=== PATIENT | male | born 1940 | race Caucasian/White ===

== ENCOUNTER 2016-11-16 14:10 | Observation (INO) | payer MEDICARE, OTHER ==
[~2016-11-16] VITALS: Ht 160 cm; Wt 75.0 kg
[~2016-11-16 14:10] MED LIST: BENHCT2012 PO; CLON0.5T4 PO; DIPH25CA6 PO; FINA5TAB4 PO; LAS20 PO; LUBI24CA7 PO; MECL-77 PO; MEMA1CAP3 PO; TAMS0.4C2 PO; TRIA15CR55 TOP; WARF3TAB PO
--- NOTE | 2016-11-16 14:47 | RADRPT ---
PROCEDURE: XR Chest. CLINICAL INDICATION: Chest pain. TECHNIQUE: Anterior chest x-ray. COMPARISON: 09/26/2013 FINDINGS: The lungs are clear. No pleural effusion identified. There is no evidence of pneumothorax. The heart size is large. Median sternotomy wires are unchanged from previous exam. Atherosclerotic calcification of the aorta is again noted. The cardiomediastinal silhouette is otherwise unremarka ble. The soft tissues are normal. Osseous structures are unremarkable. IMPRESSION: 1. No acute disease is seen in the chest. 2. Cardiomegaly. 3. Atherosclerotic calcification of the aorta. RPTAT: AA .Kushal Eason MD, MD Date Time Electronically viewed and signed by .Kushal Eason MD, MD on 11/16/2016 14:47 .M/
[2016-11-16] MEDS ORDERED: ONDANSETRON 4 MG INJ IV STA (14:50)
[2016-11-16] MEDS ORDERED: LABETALOL HCL 20MG INJ IV ONE (15:00)
[2016-11-16 15:33] LABS: ADD SCAN DIFF NO
[2016-11-16 15:34] LABS: BASOPHILS % 0.1 % (0.0-2.0); EOSINOPHILS % 0.3 % (0.0-7.0); HEMATOCRIT 38.9 % (42.0-52.0); HEMOGLOBIN 13.3 g/dl (14.0-18.0); LYMPHOCYTES # 0.8 10^3/ul (0.8-2.9); LYMPHOCYTES % 10.5 % (15.0-51.0); MEAN CORPUSCULAR HEMOGLOBIN 30.4 pg (29.0-33.0); MEAN CORPUSCULAR HGB CONC 34.2 g/dl (32.0-37.0); MEAN PLATELET VOLUME 12.2 fl (7.4-10.4); MONOCYTE # 0.3 10^3/ul (0.3-0.9); MONOCYTES % 3.5 % (0.0-11.0); NEUTROPHIL # 6.2 10^3/ul (1.6-7.5); PLATELET COUNT 192 10^3/UL (140-415); RED BLOOD COUNT 4.37 10^6/ul (4.70-6.10); RED CELL DISTRIBUTION WIDTH 13.7 % (11.5-14.5); WHITE BLOOD COUNT 7.2 10^3/ul (4.8-10.8)
--- NOTE | 2016-11-16 15:52 | RADRPT ---
PROCEDURE: CT Brain without. CLINICAL INDICATION: Vertigo. TECHNIQUE: A CT of the brain was performed on multidetector high-resolution CT scanner utilizing a xial sections from the skull base through the vertex without contrast. The scan was reviewed in sof t tissue brain and high frequency resolution bone algorithm windows. Images were reviewed on a high -resolution PACS workstation. One or more the following does reduction techniques were utilized: Aut omated exposure control, adjustment of the mA/ or kV according to patient's size, or use of iterativ e reconstruction technique. The exam CTDI = 44.80 mGy and the DLP = 720.23 mGy-cm. COMPARISON: Brain CT 02/26/2016. FINDINGS: The ventricles and sulci are mildly to moderately prominent indicative of volume loss. There is no intracranial hemorrhage, mass effect or midline shift. No abnormal intra-axial or extra-axial fluid collections are seen. The horta/white matter differentiation is preserved. There are mild scattered foci of hypoattenuation in the white matter, which are nonspecific in etiol ogy but likely reflect chronic small vessel ischemic changes. There are mild intracranial vascular calcifications consistent with atherosclerosis. The visualized paranasal sinuses demonstrate mild mu cosal thickening mainly in right sphenoid sinus. The mastoid air cells are essentially clear. IMPRESSION: 1. No acute intracranial hemorrhage, transcortical infarction or mass effect. 2. Mild intracranial atherosclerosis and chronic small vessel ischemic changes. 3. Mild to moderate generalized cerebral volume loss. RPTAT: PP .Eric Goode MD, MD Date Time Electronically viewed and signed by .Eric Goode MD, MD on 11/16/2016 15:51 .N/
[2016-11-16 15:55] LABS: INR 4.3; PT RATIO 3.3
[2016-11-16 15:56] LABS: PARTIAL THROMBOPLASTIN TIME 46.4 Sec (25.0-35.0)
[2016-11-16] MEDS ORDERED: SOD CHLORIDE 0.9% 1,000 ML IV STA (15:56)
[2016-11-16] MEDS ORDERED: METOCLOPRAMIDE 10 MG INJ IV STA (15:56)
[2016-11-16 15:58] LABS: ALANINE AMINOTRANSFERASE 44 IU/L (13-69); ALBUMIN/GLOBULIN RATIO 1.78; ALKALINE PHOSPHATASE 107 IU/L (42-121); ANION GAP 21 (8-16); ASPARTATE AMINO TRANSFERASE 34 IU/L (15-46); BILIRUBIN,INDIRECT 1.1 mg/dl (0-1.1); BILIRUBIN,TOTAL 1.1 mg/dl (0.2-1.3); BLOOD UREA NITROGEN 15 mg/dl (7-20); CALCIUM 10.5 mg/dl (8.4-10.2); CARBON DIOXIDE 27 mmol/L (21-31); CHLORIDE 97 mmol/L (97-110); CREATININE 0.71 mg/dl (0.61-1.24); GLUCOSE 120 mg/dl (70-220); POTASSIUM 4.4 mmol/L (3.5-5.1); SODIUM 141 mmol/L (135-144); TOTAL PROTEIN 7.8 g/dl (6.1-8.1)
[2016-11-16 16:10] LABS: TROPONIN-I < 0.012 ng/ml (0.00-0.12)
[2016-11-16 16:31] LABS: ADD UMIC YES; UR AMORPHOUS CRYSTAL FEW /HPF (NONE SEEN); UR ASCORBIC ACID NEGATIVE (NEGATIVE); UR BILIRUBIN (Dip) NEGATIVE (NEGATIVE); UR BLOOD (Dip) NEGATIVE (NEGATIVE); UR CLARITY SLIGHTLY CLOUDY (CLEAR); UR COLOR YELLOW (YELLOW); UR GLUCOSE (Dip) NEGATIVE (NEGATIVE); UR KETONES (Dip) NEGATIVE (NEGATIVE); UR LEUKOCYTE ESTERASE (Dip) TRACE Leu/ul (NEGATIVE); UR NITRITE (Dip) NEGATIVE (NEGATIVE); UR RBC 3 /HPF (0-5); UR SPECIFIC GRAVITY (Dip) 1.014 (1.003-1.030); UR TOTAL PROTEIN (Dip) 1+ mg/dl (NEGATIVE); UR UROBILINOGEN (Dip) NEGATIVE (NEGATIVE)
--- NOTE | 2016-11-16 16:53 | ERA ---
ER Documentation Chief Complaint Date/Time DATE: 11/16/16 TIME: 16:46 Chief Complaint gen weakness with no neuro def.mild headache speech clear. HPI 76-year-old male with a history of hypertension, coronary artery disease status post CABG, and prostate problems presenting to the ER complaining of severe head spinning dizziness with nausea and generalized weakness. He feels like he is going to fall. Symptoms started at 7 AM this morning. He denies any associated chest pain, shortness of breath, vision disturbance, abdominal pain, fever, or chills. He only has a mild headache. He took his blood pressure medications today but did not take any of his other medications. He denies any focal weakness or numbness. ROS All systems reviewed and are negative except as per history of present illness. Medications Home Meds Active Scripts Meclizine Hcl* (Meclizine Hcl*) 25 Mg Tablet, 25 MG PO Q8H Y for DIZZINESS, #30 TAB Prov:MEGHAN DELEON 02/27/16 Reported Medications Diphenhydramine Hcl* (Diphenhydramine Hcl*) 25 Mg Capsule, 25 MG PO QHS Y for ITCHING, CAP 02/26/16 Triamcinolone Acetonide* (Kenalog*) 0.1%-15GM Cr, 1 APPLIC TOP BID, #1 TUB 02/26/16 Warfarin Sodium* (Coumadin*) 3 Mg Tablet, 3 MG PO DAILY, TAB 02/26/16 Lubiprostone* (Amitiza*) 24 Mcg Capsule, 24 MCG PO BID, #60 CAP 02/26/16 Clonazepam* (Clonazepam*) 0.5 Mg Tablet, 0.5 MG PO QHS, TAB 02/26/16 Memantine HCl/Donepezil HCl (Namzaric 28 mg-10 mg Capsule) 1 Each Cap.spr.24, 1 EACH PO DAILY 02/26/16 Olmesartan-Hydrochlorothiazide (Benicar HCT) 20-12.5 Mg Tablet, 1 TAB PO DAILY, #30 TAB 02/26/16 Finasteride* (Finasteride*) 5 Mg Tablet, 5 MG PO DAILY, TAB 02/26/16 Tamsulosin Hcl* (Tamsulosin Hcl*) 0.4 Mg Cap.er.24h, 0.4 MG PO BID, CAP 02/26/16 Furosemide (Lasix) 20 Mg Tab, 20 MG PO DAILY 02/21/11 Allergies Allergies: Coded Allergies: ciprofloxacin (Verified Allergy, Mild, DEVELOPED ITCHING WITH DRUG INFUSION, 02/26/16) PMhx/Soc History of Surgery: Yes (heart surgery 15 yrs ago aortic valve replacement) Anesthesia Reaction: No Hx Neurological Disorder: No Hx Respiratory Disorders: Yes (copd.pneumonia htn) Hx Cardiac Disorders: Yes ( afib ,dyslipidimia) Hx Psychiatric Problems: No Hx Miscellaneous Medical Probl: Yes (ANEMIA) Hx Alcohol Use: No Hx Substance Use: No Hx Tobacco Use: No Smoking Status: Never smoker FmHx Family History: No diabetes Physical Exam Vitals Vital Signs Date Time Temp Pulse Resp B/P Pulse Ox O2 Delivery O2 Flow Rate FiO2 11/16/16 17:04 82 14 188/89 100 Nasal Cannula 3.0 11/16/16 16:45 82 15 190/92 96 Nasal Cannula 3.0 11/16/16 15:10 82 19 157/87 96 Nasal Cannula 2.0 11/16/16 14:29 Nasal Cannula 2 11/16/16 14:16 98.4 82 20 208/90 98 Physical Exam Const: Appears uncomfortable, nontoxic Head: Atraumatic Eyes: Normal Conjunctiva, PERRLA, EOMI, no nystagmus ENT: Normal External Ears, Nose and Mouth. Neck: Full range of motion..~ No meningismus no JVD. Resp: Clear to auscultation bilaterally Cardio: Irregularly irregular rhythm, normal rate, no murmurs. 2+ distal pulses in all 4 extremities Abd: Soft, non tender, non distended. Normal bowel sounds Skin: No petechiae or rashes Back: No midline or flank tenderness Ext: No cyanosis, or edema Neur: Awake and alert and oriented 3, cranial nerves intact, strength and sensations intact in all 4 extremities, will not ambulate secondary to dizziness Psych: Normal Mood and Affect Result Diagram: 11/16/16 1520 11/16/16 1520 Results 24 hrs Laboratory Tests Test 11/16/16 15:20 11/16/16 16:00 11/16/16 16:03 White Blood Count 7.210^3/ul Red Blood Count 4.3710^6/ul Hemoglobin 13.3g/dl Hematocrit 38.9% Mean Corpuscular Volume 89.0fl Mean Corpuscular Hemoglobin 30.4pg Mean Corpuscular Hemoglobin Concent 34.2g/dl Red Cell Distribution Width 13.7% Platelet Count 68819^3/UL Mean Platelet Volume 12.2fl Neutrophils % 85.0% Lymphocytes % 10.5% Monocytes % 3.5% Eosinophils % 0.3% Basophils % 0.1% Nucleated Red Blood Cells % 0.0/100WBC Neutrophils # 6.210^3/ul Lymphocytes # 0.810^3/ul Monocytes # 0.310^3/ul Eosinophils # 0.010^3/ul Basophils # 0.010^3/ul Nucleated Red Blood Cells # 0.010^3/ul Prothrombin Time 42.0Sec Prothrombin Time Ratio 3.3 INR International Normalized Ratio 4.30 Activated Partial Thromboplast Time 46.4Sec Sodium Level 141mmol/L Potassium Level 4.4mmol/L Chloride Level 97mmol/L Carbon Dioxide Level 27mmol/L Anion Gap 21 Blood Urea Nitrogen 15mg/dl Creatinine 0.71mg/dl Glucose Level 120mg/dl Calcium Level 10.5mg/dl Total Bilirubin 1.1mg/dl Direct Bilirubin 0.00mg/dl Indirect Bilirubin 1.1mg/dl Aspartate Amino Transf (AST/SGOT) 34IU/L Alanine Aminotransferase (ALT/SGPT) 44IU/L Alkaline Phosphatase 107IU/L Troponin I < 0.012ng/ml Total Protein 7.8g/dl Albumin 5.0g/dl Globulin 2.80g/dl Albumin/Globulin Ratio 1.78 Ethyl Alcohol Level < 10.0mg/dl Bedside Glucose 123mg/dL Urine Color YELLOW Urine Clarity SLIGHTLY CLOUDY Urine pH 7.0 Urine Specific [place] 1.014 Urine Ketones NEGATIVEmg/dL Urine Nitrite NEGATIVEmg/dL Urine Bilirubin NEGATIVEmg/dL Urine Urobilinogen NEGATIVEmg/dL Urine Leukocyte Esterase TRACELeu/ul Urine Microscopic RBC 3/HPF Urine Microscopic WBC 6/HPF Urine Amorphous Crystals FEW/HPF Urine Hemoglobin NEGATIVEmg/dL Urine Glucose NEGATIVEmg/dL Urine Total Protein 1+mg/dl Current Medications Medications (Trade) Dose Ordered Sig/Daron Route PRN Reason Start Time Stop Time Status Last Admin Dose Admin Labetalol HCl (Labetalol) 20 mg ONCE ONCE IV 11/16/16 15:00 11/16/16 15:01 DC 11/16/16 14:56 Ondansetron HCl 4 mg 4 mg ONCE STAT IV 11/16/16 14:50 11/16/16 14:52 DC 11/16/16 14:56 Sodium Chloride (NS) 1,000 ml @ 1,000 mls/hr Q1H STAT IV 11/16/16 15:56 11/16/16 16:55 DC 11/16/16 16:05 Metoclopramide HCl (Reglan) 10 mg ONCE STAT IV 11/16/16 15:56 11/16/16 15:57 DC 11/16/16 16:04 Ondansetron HCl (Zofran Inj) 4 mg ER BRIDGE PRN IV NAUSEA AND/OR VOMITING 11/16/16 17:00 11/17/16 16:59 Acetaminophen (Tylenol Tab) 650 mg ER BRIDGE PRN PO MILD PAIN/FEVER 11/16/16 17:00 11/17/16 16:59 Procedures/MDM EKG: Rate/Rhythm: Atrial fibrillation at 86 bpm QRS, ST, T-waves: LAFB, No changes consistent w/ acute ischemia Impression: No evidence of ischemia Chest x-ray: IMPRESSION: 1. No acute disease is seen in the chest. 2. Cardiomegaly. 3. Atherosclerotic calcification of the aorta. CT head: No acute abnormalities per radiology Labs CBC: no anemia or evidence of infection CMP: No evidence of electrolyte abnormality, renal failure, hypoglycemia, liver failure, or biliary obstruction Coags: Supratherapeutic INR Troponin within normal limits UA: no evidence of infection MDM: Patients symptoms are concerning for a cardiac etiology. Other etiologies considered were PE, aortic dissection, stroke, intracranial hemorrhage, hypertensive emergency. Vitals were notable for a systolic blood pressure of 200. Labetalol IV given. IV fluids given. Zofran given for nausea with minimal relief. Reglan IV given after this with some relief. EKG showed no acute ischemia and atrial fibrillation with a normal rate. Initial troponin negative. CXR grossly unremarkable. There is no evidence of acute infection on workup. CT head did not show evidence of stroke or hemorrhage. However I cannot rule out ischemic cerebellar stroke. He is not a TPA candidate at this time as his symptoms started greater than 5 hours prior to arrival. The patient has a high risk of adverse events. Plan to admit for further evaluation. Patient is not safe for discharge as his symptoms are persisting despite blood pressure treatment and will need inpatient monitoring and further evaluation. Further workup will be deferred to the inpatient team. Departure Diagnosis: Primary Impression: Acute weakness Additional Impression: Vertigo Condition: Fair PAM HU MD Nov 16, 2016 16:53
[2016-11-16] MEDS ORDERED: ONDANSETRON 4 MG INJ IV PRN ×2 (17:00→18:30)
[2016-11-16] MEDS ORDERED: ACETAMINOPHEN 325 MG TAB PO PRN ×2 (17:00→18:30)
[2016-11-16 17:44] VITALS: BP 210/95; PULSE 87; RESP 18
[2016-11-16 17:58] VITALS: PULSE 93
[2016-11-16] MEDS ORDERED: hydrALAzine 20 MG INJ IV PRN (18:00)
[2016-11-16 18:02] VITALS: Ht 160 cm; Wt 75.0 kg
[2016-11-16] MEDS ORDERED: morphine 2 MG INJ IV PRN (18:30)
[2016-11-16] MEDS ORDERED: NACL 0.9% 3 ML SYG IV SCH (18:30)
[2016-11-16] MEDS ORDERED: LORAZEPAM 2 MG INJ IV PRN (18:30)
[2016-11-16] MEDS ORDERED: CEFTRIAXONE 1 GM/50 ML (PMX) 50 ML IVPB SCH (18:30)
[2016-11-16] MEDS ORDERED: DOCUSATE SODIUM 100 MG CAP PO PRN (18:30)
[2016-11-16] MEDS ORDERED: MAGNESIUM HYDROXIDE 30ML CUP PO PRN (18:30)
[2016-11-16] MEDS ORDERED: HYDROCODONE/APAP (5/325) TAB PO PRN (18:30)
[2016-11-16] MEDS ORDERED: MECLIZINE 25 MG TAB PO PRN (18:30)
[2016-11-16] MEDS ORDERED: ALBUTEROL/IPRATROPIUM (NEB) 3 ML AMP HHN PRN (18:30)
[2016-11-16] MEDS ORDERED: DIPHENHYDRAMINE 25 MG CAP PO PRN (18:30)
[2016-11-16] MEDS ORDERED: NITROGLYCERIN (SL) 0.4 MG TAB SL PRN (18:30)
[2016-11-16] MEDS ORDERED: NA PHOSPHATE/BIPHOS 133 ML ENEMA PR PRN (18:30)
--- NOTE | 2016-11-16 18:45 | HP ---
Date/Time of Note Date/Time of Note DATE: 11/16/16 TIME: 18:38 Assessment/Plan VTE Prophylaxis VTE Prophylaxis Intervention: SCD's Lines/Catheters IV [facility] Saline Lock Assessment/Plan Chief Complaint/Hosp Course Assessment and plan: 76-year-old male presenting with weakness dizziness, elevated INR, hypertensive urgency 1. Weakness dizziness: Patient's complaint started this morning, could be related to patient's blood pressure issues -Admit patient to telemetry floor, continue monitoring, continue meclizine as well. Check TSH A1c and lipid panel 2. Hypertensive urgency: Patient's systolic blood pressure in the low 200 range , given labetalol and hydralazine thus far -Continue as needed clonidine and hydralazine, and home blood pressure medicines, consider cardiology consult, check 2D echocardiogram as well 3. HTN: See #2 4. Prostate issues: Continue current prostate meds 5. GI prophylaxis: PPI 6. DVT prophylaxis: SCDs 7. History of aortic valve replacement: Again cardiology consult, follow-up echocardiogram 8. Elevated INR: Hold Coumadin, trend INR every morning. Goal INR should be between 2 and 3 Problems: HPI/ROS Admit Date/Time Admit Date/Time Nov 16, 2016 at 16:32 Hx of Present Illness Chief complaint: Weakness, shoulder pain, elevated INR, dizziness HPI: 76-year-old male past medical history of CAD status post CABG, aortic valve replacement, hypertension, prostate issues, who presents with complaints of weakness and dizziness. Family also stated his blood pressure at home was 235/110, denied any chest pain or loss of consciousness no shortness of breath no upper or lower GI bleeding no fevers or chills no diarrhea or constipation. Mild headache, but no focal deficits. When he came in today his INR was found to be elevated at 4.35, although patient does state he did not take his Coumadin yesterday. Patient sees a [facility] machine in [place] Dr. Parrish, I believe, as well. PMH/Family/Social Past Medical History Medical History: coronary artery disease, hypertension Past Surgical History Past Surgical Hx: coronary bypass surgery, other (AVR, hernia) Family History Significant Family History: no pertinent family hx Social History Alcohol Use: occasionally Smoking Status: Never smoker Drug Use: none Exam/Review of Systems Vital Signs Vitals Vital Signs Date Time Temp Pulse Resp B/P Pulse Ox O2 Delivery O2 Flow Rate FiO2 11/16/16 18:28 Nasal Cannula 3.0 11/16/16 17:58 93 11/16/16 17:44 97.6 18 210/95 95 Exam Exam General: Lying in bed, alert and oriented 3, no acute distress, family at bedside HEENT: Pupils equal round reactive to light extraocular muscles are intact Neck: Supple Lungs: Clear to auscultation bilaterally Cardiovascular: S1-S2 heard no rubs or gallops GI: Normal bowel sounds, nontender, nondistended, no rebound or guarding Muscular skeletal: No lower exam edema bilaterally Neurologic: No focal deficits Labs Result Diagram: 11/16/16 1520 11/16/16 1520 Medications Medications Current Medications Hydralazine HCl (Apresoline) 10 mg Q6H PRN IV SBP >160 Last administered on 11/16t 18:11; Admin Dose 10 MG; Start 11/16/16 at 18:00 Ondansetron HCl (Zofran Inj) 4 mg Q6H PRN IV NAUSEA AND/OR VOMITING; Start 11/16 at 18:30 Acetaminophen (Tylenol Tab) 650 mg Q6H PRN PO PAIN LEVEL 1-3 OR FEVER; Start at 18:30 Acetaminophen/ Hydrocodone Bitart ([place] (5/325)) 1 tab Q6H PRN PO MODERATE PAIN LEVEL 4-6; Start 11/16/16 at 18:30 Morphine Sulfate (morphine) 2 mg Q4H PRN IV SEVERE PAIN LEVEL 7-10; Start at 18:30 Docusate Sodium (Colace) 100 mg Q12H PRN PO CONSTIPATION; Start 11/16/16 at 18: 30 Magnesium Hydroxide (Milk Of Mag) 30 ml DAILY PRN PO CONSTIPATION; Start at 18:30 Sodium Biphosphate/ Sodium Phosphate (Fleet Enema) 133 ml DAILY PRN [place] CONSTIPATION; Start 11/16/16 at 18:30 Pantoprazole 40 mg 40 mg DAILY@06 PO ; Start 11/17/16 at 06:00 Sodium Chloride (1/2 NS) 1,000 ml @ 75 mls/hr [id number] IV ; Start 11/16/16 at 18: 04 Lorazepam (Ativan) 0.5 mg Q6H PRN IV ANXIETY; Start 11/16/16 at 18:30 Clonidine 0.1 mg 0.1 mg Q6H PRN PO ELEVATED BLOOD PRESSURE; Start 11/16/16 at 18 :30 Ceftriaxone Sodium (Rocephin) 50 ml @ 100 mls/hr Q24H IVPB ; Start 11/16/16 at 18:30 Nitroglycerin (Nitroglycerin (Sl Tab) 0.4 Mg) 1 tab Q5M PRN SL ANGINA; Start at 18:30 Clonazepam (Klonopin) 0.5 mg QHS PO ; Start 11/16/16 at 21:00 Diphenhydramine HCl (Benadryl) 25 mg QHS PRN PO ITCHING; Start 11/16/16 at 18:30 Finasteride (Proscar) 5 mg DAILY PO ; Start 11/17/16 at 09:00 Furosemide (Lasix) 20 mg DAILY PO ; Start 11/17/16 at 09:00 Lubiprostone (Amitiza) 24 mcg BID PO ; Start 11/16/16 at 21:00 Meclizine HCl (Antivert) 25 mg Q8H PRN PO DIZZINESS; Start 11/16/16 at 18:30 Tamsulosin HCl (Flomax) 0.4 mg BID PO ; Start 11/16/16 at 21:00 Triamcinolone Acetonide (Kenalog 0.1% Cr) 1 applic BID TOP ; Start 11/16/16 at 21 :00 WANDA MORILLO Nov 16, 2016 18:45
[2016-11-16] MEDS: SOD CHLORIDE 0.45% 1,000 ML IV SCH (18:48)
[2016-11-16 18:51] VITALS: BP 134/63; PULSE 91
[2016-11-16 19:37] VITALS: BP 129/71; RESP 18
[2016-11-16 20:13] VITALS: PULSE 90
[2016-11-16] MEDS ORDERED: clonAZEPAM 0.5 MG TAB PO SCH (21:00)
[2016-11-16] MEDS: LUBIPROSTONE 24 MCG CAP PO SCH (21:27)
[2016-11-16] MEDS: TAMSULOSIN (SR) 0.4 MG CAP PO SCH (21:27)
[2016-11-16] MEDS: TRIAMCINOLONE ACET 0.1% 15 GM CR TOP SCH (21:27)
[2016-11-16 23:52] VITALS: BP 123/58; RESP 18
[2016-11-17] VITALS (8 sets, daily range): BP systolic 97–121; BP diastolic 56–58; PULSE 68–141; RESP 17
[2016-11-17] MEDS ORDERED: PANTOPRAZOLE (EC) 40 MG TAB PO SCH (06:00)
[2016-11-17 06:43] LABS: ADD SCAN DIFF NO
[2016-11-17 06:53] LABS: BASOPHILS % 0.1 % (0.0-2.0); EOSINOPHILS # 0.1 10^3/ul (0.0-0.5); HEMATOCRIT 35.7 % (42.0-52.0); HEMOGLOBIN 11.8 g/dl (14.0-18.0); LYMPHOCYTES # 1.2 10^3/ul (0.8-2.9); LYMPHOCYTES % 13.5 % (15.0-51.0); MEAN CORPUSCULAR HEMOGLOBIN 29.6 pg (29.0-33.0); MEAN CORPUSCULAR HGB CONC 33.1 g/dl (32.0-37.0); MEAN CORPUSCULAR VOLUME 89.5 fl (82.0-101.0); MEAN PLATELET VOLUME 11.9 fl (7.4-10.4); MONOCYTE # 0.7 10^3/ul (0.3-0.9); MONOCYTES % 7.2 % (0.0-11.0); NEUTROPHIL # 7.1 10^3/ul (1.6-7.5); NEUTROPHILS % 77.9 % (39.0-77.0); PLATELET COUNT 198 10^3/UL (140-415); RED BLOOD COUNT 3.99 10^6/ul (4.70-6.10); RED CELL DISTRIBUTION WIDTH 13.8 % (11.5-14.5); WHITE BLOOD COUNT 9.1 10^3/ul (4.8-10.8)
[2016-11-17 07:04] LABS: INR 4.08; PROTIME 40.3 Sec (12.2-14.2); PT RATIO 3.1
[2016-11-17 07:22] LABS: CALCIUM 9.6 mg/dl (8.4-10.2); CHOL/HDL RATIO 3.1 RATIO; CREATININE 1.01 mg/dl (0.61-1.24); MAGNESIUM 1.9 mg/dl (1.7-2.5); PHOSPHORUS 3.7 mg/dl (2.5-4.9); POTASSIUM 3.7 mmol/L (3.5-5.1)
[2016-11-17] MEDS: SOD CHLORIDE 0.45% 1,000 ML IV SCH (07:24)
[2016-11-17 07:49] LABS: THYROID STIMULATING HORMONE 0.924 MIU/L (0.465-4.680)
[2016-11-17] MEDS ORDERED: FUROSEMIDE 20 MG TAB PO SCH (09:00)
[2016-11-17] MEDS ORDERED: FINASTERIDE 5 MG TAB PO SCH (09:00)
[2016-11-17] MEDS: TRIAMCINOLONE ACET 0.1% 15 GM CR TOP SCH (10:00)
[2016-11-17] MEDS: TAMSULOSIN (SR) 0.4 MG CAP PO SCH (10:00)
[2016-11-17] MEDS: LUBIPROSTONE 24 MCG CAP PO SCH (10:00)
--- NOTE | 2016-11-17 11:46 | PN ---
Date/Time of Note Date/Time of Note DATE: 11/17/16 TIME: 11:43 Assessment/Plan VTE Prophylaxis VTE Prophylaxis Intervention: SCD's Lines/Catheters IV Catheter Type (from Nrs): Saline Lock Assessment/Plan Chief Complaint/Hosp Course Assessment and plan: 76-year-old male presenting with weakness dizziness, elevated INR, hypertensive urgency 1. Weakness dizziness - improved - could be related to patient's blood pressure issues. - continue monitoring, continue meclizine as well. - f/u TSH A1c and lipid panel 2. Hypertensive urgency: Patient's systolic blood pressure in the low 200 range on admission, but improved now -Continue as needed clonidine and hydralazine, and home blood pressure medicines - f/u cardiology consult rec's, 2D echocardiogram as well 3. HTN: See #2 4. Prostate issues: Continue current prostate meds 5. GI prophylaxis: PPI 6. DVT prophylaxis: SCDs 7. History of aortic valve replacement: Again cardiology consult, follow-up echocardiogram 8. Elevated INR: Hold Coumadin, trend INR every morning. Goal INR should be between 2 and 3 (today = 4.08) Problems: Subjective 24 Hr Interval Summary Free Text/Dictation Denied cp. Being evaluated by CV team. Exam/Review of Systems Vital Signs Vitals Vital Signs Date Time Temp Pulse Resp B/P Pulse Ox O2 Delivery O2 Flow Rate FiO2 11/17/16 11:14 98.3 69 17 121/56 99 11/16/16 22:07 Nasal Cannula 3.0 Intake and Output 11/16/16 11/16/16 11/17/16 15:00 23:00 07:00 Intake Total 275 ml 1000 ml Output Total 250 ml 450 ml Balance 25 ml 550 ml Exam General: Lying in bed, alert and oriented 3, no acute distress, family at bedside HEENT: Pupils equal round reactive to light extraocular muscles are intact Neck: Supple Lungs: Clear to auscultation bilaterally Cardiovascular: S1-S2 heard no rubs or gallops GI: Normal bowel sounds, nontender, nondistended, no rebound or guarding Muscular skeletal: No lower exam edema bilaterally Neurologic: No focal deficits Results Result Diagram: 11/17/16 0600 11/17/16 0600 Results 24 hrs Laboratory Tests Test 11/16/16 15:20 11/16/16 16:00 11/16/16 16:03 11/17/16 06:00 White Blood Count 7.2 9.1 # Red Blood Count 4.37 L 3.99 L Hemoglobin 13.3 L 11.8 L Hematocrit 38.9 L 35.7 L Mean Corpuscular Volume 89.0 89.5 Mean Corpuscular Hemoglobin 30.4 29.6 Mean Corpuscular Hemoglobin Concent 34.2 33.1 Red Cell Distribution Width 13.7 13.8 Platelet Count 192 198 Mean Platelet Volume 12.2 #H 11.9 H Neutrophils % 85.0 H 77.9 H Lymphocytes % 10.5 L 13.5 L Monocytes % 3.5 7.2 Eosinophils % 0.3 1.0 Basophils % 0.1 0.1 Nucleated Red Blood Cells % 0.0 0.0 Neutrophils # 6.2 7.1 Lymphocytes # 0.8 1.2 Monocytes # 0.3 0.7 Eosinophils # 0.0 0.1 Basophils # 0.0 0.0 Nucleated Red Blood Cells # 0.0 0.0 Prothrombin Time 42.0 #H 40.3 H Prothrombin Time Ratio 3.3 3.1 INR International Normalized Ratio 4.30 4.08 Activated Partial Thromboplast Time 46.4 H Sodium Level 141 139 Potassium Level 4.4 3.7 Chloride Level 97 97 Carbon Dioxide Level 27 27 Anion Gap 21 H 19 H Blood Urea Nitrogen 15 20 Creatinine 0.71 1.01 Glucose Level 120 107 Calcium Level 10.5 H 9.6 Total Bilirubin 1.1 Direct Bilirubin 0.00 Indirect Bilirubin 1.1 Aspartate Amino Transf (AST/SGOT) 34 Alanine Aminotransferase (ALT/SGPT) 44 Alkaline Phosphatase 107 Troponin I < 0.012 Total Protein 7.8 Albumin 5.0 H Globulin 2.80 Albumin/Globulin Ratio 1.78 Free Thyroxine 1.06 Ethyl Alcohol Level < 10.0 Bedside Glucose 123 Urine Color YELLOW Urine Clarity SLIGHTLY CLOUDY A Urine pH 7.0 Urine Specific [place] 1.014 Urine Ketones NEGATIVE Urine Nitrite NEGATIVE Urine Bilirubin NEGATIVE Urine Urobilinogen NEGATIVE Urine Leukocyte Esterase TRACE A Urine Microscopic RBC 3 Urine Microscopic WBC 6 H Urine Amorphous Crystals FEW A Urine Hemoglobin NEGATIVE Urine Glucose NEGATIVE Urine Total Protein 1+ H Phosphorus Level 3.7 Magnesium Level 1.9 Triglycerides Level 96 Cholesterol Level 162 LDL Cholesterol, Calculated 92 HDL Cholesterol 51 Cholesterol/HDL Ratio 3.1 Thyroid Stimulating Hormone (TSH) 0.924 Medications Medications Current Medications Hydralazine HCl (Apresoline) 10 mg Q6H PRN IV SBP >160 Last administered on 11/16 18:11; Admin Dose 10 MG; Start 11/16/16 at 18:00 Ondansetron HCl (Zofran Inj) 4 mg Q6H PRN IV NAUSEA AND/OR VOMITING; Start 11/16 at 18:30 Acetaminophen (Tylenol Tab) 650 mg Q6H PRN PO PAIN LEVEL 1-3 OR FEVER; Start at 18:30 Acetaminophen/ Hydrocodone Bitart ([place] (5/325)) 1 tab Q6H PRN PO MODERATE PAIN LEVEL 4-6; Start 11/16/16 at 18:30 Morphine Sulfate (morphine) 2 mg Q4H PRN IV SEVERE PAIN LEVEL 7-10; Start at 18:30 Docusate Sodium (Colace) 100 mg Q12H PRN PO CONSTIPATION; Start 11/16/16 at 18: 30 Magnesium Hydroxide (Milk Of Mag) 30 ml DAILY PRN PO CONSTIPATION; Start at 18:30 Sodium Biphosphate/ Sodium Phosphate (Fleet Enema) 133 ml DAILY PRN [place] CONSTIPATION; Start 11/16/16 at 18:30 Pantoprazole 40 mg 40 mg DAILY@06 PO Last administered on 11/17/16 05:30; Admin Dose 40 MG; Start 11/17/16 at 06:00 Sodium Chloride (1/2 NS) 1,000 ml @ 75 mls/hr [id number] IV Last administered on 11/16/16 18:48; Admin Dose 75 MLS/HR; Start 11/16/16 at 18:04 Lorazepam (Ativan) 0.5 mg Q6H PRN IV ANXIETY; Start 11/16/16 at 18:30 Clonidine 0.1 mg 0.1 mg Q6H PRN PO ELEVATED BLOOD PRESSURE; Start 11/16/16 at 18 :30 Ceftriaxone Sodium (Rocephin) 50 ml @ 100 mls/hr Q24H IVPB Last administered on 11/16/16 18:48; Admin Dose 100 MLS/HR; Start 11/16/16 at 18:30 Nitroglycerin (Nitroglycerin (Sl Tab) 0.4 Mg) 1 tab Q5M PRN SL ANGINA; Start at 18:30 Clonazepam (Klonopin) 0.5 mg QHS PO Last administered on 11/16/16 21:27; Admin Dose 0.5 MG; Start 11/16/16 at 21:00 Diphenhydramine HCl (Benadryl) 25 mg QHS PRN PO ITCHING; Start 11/16/16 at 18:30 Finasteride (Proscar) 5 mg DAILY PO Last administered on 11/17/16 10:00; Admin Dose 5 MG; Start 11/17/16 at 09:00 Furosemide (Lasix) 20 mg DAILY PO Last administered on 11/17/16 10:01; Admin Dose 20 MG; Start 11/17/16 at 09:00 Lubiprostone (Amitiza) 24 mcg BID PO Last administered on 11/17/16 10:00; Admin Dose 24 MCG; Start 11/16/16 at 21:00 Meclizine HCl (Antivert) 25 mg Q8H PRN PO DIZZINESS; Start 11/16/16 at 18:30 Tamsulosin HCl (Flomax) 0.4 mg BID PO Last administered on 11/17/16 10:00; Admin Dose 0.4 MG; Start 11/16/16 at 21:00 Triamcinolone Acetonide (Kenalog 0.1% Cr) 1 applic BID TOP Last administered on 11/17/16 10:00; Admin Dose 1 APPLIC; Start 11/16/16 at 21:00 WANDA MORILLO Nov 17, 2016 11:45
--- NOTE | 2016-11-17 12:19 | PDOCDIS ---
Discharge Instructions CONDITION Patient Condition: Stable HOME CARE INSTRUCTIONS: Diet Instructions: Low Fat /Cholesterol ACTIVITY: Activity Restrictions: Slowly Increase Activity FOLLOW UP/APPOINTMENTS Follow-up Plan Please take your medications as prescribed, and get your INR checked in 2 days at the Coumadin clinic. WANDA MORILLO Nov 17, 2016 12:19
[2016-11-17] MEDS ORDERED: CIPR-193 PO (12:21)
--- NOTE | 2016-11-17 12:26 | RADRPT ---
Echocardiogram Report Patient Name: AMERICA AYERS Gender: Male Date: 1940 Study Date: 17-Nov-2016 [employer] Mechanic: Laila Mcmullen [facility] Location: 521 Ref. Physician: WANDA MORILLO Quality: Adequate Procedures: Transthoracic echocardiogram with complete 2D, M-Mode, and doppler examination. Indications: Aortic Valve Replacement, CABG. 2D/M Mode Doppler Measurement Value Normal Ranges Measurement Value Normal Ranges LVIDd 2D 4.6 3.5 - 5.6 cm CATE Vmax 2.4 cm2 LVIDs 2D 2.7 2.1 - 4.1 cm CATE VTI 2.3 cm2 FS 2D 40.9 % AV Mean Raheem 1.7 m/sec LVPWd 2D 1.4 0.6 - 1.1 cm AV Mean PG 15.0 mmHg IVSd 2D 1.6 0.6 - 1.1 cm AV Peak Raheem 2.7 m/sec IVS/LVPW 2D 1.2 AV Peak PG 29.0 mmHg AoR Diam 2D 2.9 2.0 - 3.7 cm AV VTI 54.6 cm LA/Ao 2D 2 0 - 1 LVOT Mean Raheem 1.0 m/sec EDV 2D 95.4 cm3 LVOT Mean PG 5.0 mmHg ESV 2D 19.7 cm3 LVOT Peak Raheem 1.6 m/sec LA Dimen 2D 5.1 2.3 - 4.0 cm LVOT Peak PG 10.0 mmHg LVOT Diam 2.3 cm LVOT VTI 30.9 cm LVOT Area 4.2 cm2 MV E Peak Raheem 2.0 m/sec MV PHT 156.0 msec MV Peak Raheem 2.2 m/sec MV Peak PG 19.0 mmHg MV Mean Raheem 0.9 m/sec MV Mean PG 5.0 mmHg MV Decel Time 370 msec MV Decel [place] 4 MV PHT Peak Raheem 2.1 m/sec MV PHT 156.0 msec MV VTI 75.8 cm MVA PHT 1.4 cm2 MVA VTI 1.7 cm TR Peak Raheem 3.0 m/sec TR Peak PG 36.0 mmHg RVSP 51.0 mmHg Findings Left Ventricle: Normal left ventricular systolic function. Normal left ventricular cavity size. Moderate concentric left ventricular hypertrophy. Ejection fraction is visually estimated at 65 %. Abnormal Diastolic Function. Right Ventricle: Normal right ventricular size. Normal right ventricular systolic function. Left Atrium: There is moderate enlargement of left atrium. Right Atrium: The right atrium is normal in size. Mitral Valve: Moderate mitral leaflet calcification. Moderate mitral annular calcification. Mild to moderate mitral stenosis. Mitral valve Max Velocity 2.20 m/sec. MaxPG 19.00 mmHg. MeanPG 5.00 mmHg. Mitral Valve Area by PHT1.41 cm2. Aortic Valve: Aortic Valve Mechanical Prosthesis. Aortic valve Max velocity 2.70 m/sec. Max PG 29.00 mmHg. Mean PG 15.00 mmHg. Trace aortic valve regurgitation. Tricuspid Valve: Normal appearance of the tricuspid valve. Estimated peak PA systolic pressure 51 mmHg. There is mild tricuspid regurgitation. Pulmonic Valve: Pulmonic valve not well visualized. Pericardium: Normal pericardium with no significant pericardial effusion. Aorta: Normal aortic root. IVC: Dilated IVC without respiratory collapse consistent with elevated right atrial pressure. Conclusions Normal left ventricular systolic function. Normal left ventricular cavity size. Moderate concentric left ventricular hypertrophy. Ejection fraction is visually estimated at 65 %. Abnormal Diastolic Function. Normal right ventricular size. Normal right ventricular systolic function. There is moderate enlargement of left atrium. The right atrium is normal in size. Aortic Valve Mechanical Prosthesis with no significant stenosis. Trace aortic valve regurgitation. Estimated peak PA systolic pressure 51 mmHg. There is mild tricuspid regurgitation. Normal pericardium with no significant pericardial effusion. Electronically Signed By: Sudheer Mcgregor 17-Nov-2016 12:25:16 -0700 Patient Name: AMERICA AYERS Study Date: 17-Nov-2016 [id number]
--- NOTE | 2016-11-17 12:32 | CONS ---
Date/Time of Note Date/Time of Note DATE: 11/17/16 TIME: 12:26 Assessment/Plan Assessment/Plan Additional Assessment/Plan Uncontrolled hypertension, improved History mechanical aortic valve replacement Atrial flutter/fibrillation Preserved ejection fraction Mitral stenosis -Patient with significant improvement in blood pressure after 1 dose of IV labetalol and IV hydralazine. Blood pressure trend overnight and this morning improved and patient basically on home antihypertensive medication regimen. Patient feeling better with no symptoms of headache or dizziness, chest pain or shortness of breath. INR has been elevated, agree with holding Coumadin for today and have INR checked in the next 1-2 days. Otherwise if blood pressure trend remains stable on current medication regimen, and if patient remains asymptomatic, no further inpatient cardiac workup needed at the current time. Consultation Date/Type/Reason Admit Date/Time Nov 16, 2016 at 16:32 Type of Consultation: cv Reason for Consultation Hypertension Hx of Present Illness This is a 76-year-old female with past medical history of aortic valve replacement, mitral stenosis, atrial fibrillation who presents with uncontrolled hypertension and symptoms of headache and dizziness. Patient was told she was elevated at home and because of the symptoms came to the emergency room for further evaluation and care. Patient was given 1 dose of labetalol IV as well as hydralazine IV with significant improvement in his blood pressure. At the current time, he denies any headache, dizziness or lightheadedness. He denies any shortness of breath or chest pain at rest or with exertion. He is feeling much better at the current time. 12 point review of systems was performed with all pertinent positives and negatives mentioned above and all else is negative Past Medical History Aortic valve disease status post replacement Atrial fibrillation Medical History: hypertension Past Surgical History Aortic valve replacement Past Surgical Hx: other (AVR, hernia) Family History Significant Family History: no pertinent family hx Social History Alcohol Use: occasionally Smoking Status: Never smoker Drug Use: none Exam/Review of Systems Vital Signs Vitals Vital Signs Date Time Temp Pulse Resp B/P Pulse Ox O2 Delivery O2 Flow Rate FiO2 11/17/16 12:14 71 11/17/16 11:14 98.3 17 121/56 99 11/16/16 22:07 Nasal Cannula 3.0 Intake and Output 11/16/16 11/16/16 11/17/16 15:00 23:00 07:00 Intake Total 275 ml 1000 ml Output Total 250 ml 450 ml Balance 25 ml 550 ml Exam No apparent distress Constitutional: alert, oriented, well developed Head: normocephalic Neck: supple Respiratory: clear to auscultation, normal air movement Cardiovascular: irregular rhythm, other (S1-S2 heard), systolic murmur Gastrointestinal: bowel sounds, non-tender, other (No guarding), soft Extremities: other (No edema or cyanosis) Results Result Diagram: 11/17/16 0600 11/17/16 0600 Results 24 hrs Laboratory Tests Test 11/16/16 15:20 11/16/16 16:00 11/16/16 16:03 11/17/16 06:00 White Blood Count 7.2 9.1 # Red Blood Count 4.37 L 3.99 L Hemoglobin 13.3 L 11.8 L Hematocrit 38.9 L 35.7 L Mean Corpuscular Volume 89.0 89.5 Mean Corpuscular Hemoglobin 30.4 29.6 Mean Corpuscular Hemoglobin Concent 34.2 33.1 Red Cell Distribution Width 13.7 13.8 Platelet Count 192 198 Mean Platelet Volume 12.2 #H 11.9 H Neutrophils % 85.0 H 77.9 H Lymphocytes % 10.5 L 13.5 L Monocytes % 3.5 7.2 Eosinophils % 0.3 1.0 Basophils % 0.1 0.1 Nucleated Red Blood Cells % 0.0 0.0 Neutrophils # 6.2 7.1 Lymphocytes # 0.8 1.2 Monocytes # 0.3 0.7 Eosinophils # 0.0 0.1 Basophils # 0.0 0.0 Nucleated Red Blood Cells # 0.0 0.0 Prothrombin Time 42.0 #H 40.3 H Prothrombin Time Ratio 3.3 3.1 INR International Normalized Ratio 4.30 4.08 Activated Partial Thromboplast Time 46.4 H Sodium Level 141 139 Potassium Level 4.4 3.7 Chloride Level 97 97 Carbon Dioxide Level 27 27 Anion Gap 21 H 19 H Blood Urea Nitrogen 15 20 Creatinine 0.71 1.01 Glucose Level 120 107 Calcium Level 10.5 H 9.6 Total Bilirubin 1.1 Direct Bilirubin 0.00 Indirect Bilirubin 1.1 Aspartate Amino Transf (AST/SGOT) 34 Alanine Aminotransferase (ALT/SGPT) 44 Alkaline Phosphatase 107 Troponin I < 0.012 Total Protein 7.8 Albumin 5.0 H Globulin 2.80 Albumin/Globulin Ratio 1.78 Free Thyroxine 1.06 Ethyl Alcohol Level < 10.0 Bedside Glucose 123 Urine Color YELLOW Urine Clarity SLIGHTLY CLOUDY A Urine pH 7.0 Urine Specific [place] 1.014 Urine Ketones NEGATIVE Urine Nitrite NEGATIVE Urine Bilirubin NEGATIVE Urine Urobilinogen NEGATIVE Urine Leukocyte Esterase TRACE A Urine Microscopic RBC 3 Urine Microscopic WBC 6 H Urine Amorphous Crystals FEW A Urine Hemoglobin NEGATIVE Urine Glucose NEGATIVE Urine Total Protein 1+ H Phosphorus Level 3.7 Magnesium Level 1.9 Triglycerides Level 96 Cholesterol Level 162 LDL Cholesterol, Calculated 92 HDL Cholesterol 51 Cholesterol/HDL Ratio 3.1 Thyroid Stimulating Hormone (TSH) 0.924 Medications Medications Current Medications Hydralazine HCl (Apresoline) 10 mg Q6H PRN IV SBP >160 Last administered on 11/16 18:11; Admin Dose 10 MG; Start 11/16/16 at 18:00 Ondansetron HCl (Zofran Inj) 4 mg Q6H PRN IV NAUSEA AND/OR VOMITING; Start 11/16 at 18:30 Acetaminophen (Tylenol Tab) 650 mg Q6H PRN PO PAIN LEVEL 1-3 OR FEVER; Start at 18:30 Acetaminophen/ Hydrocodone Bitart ([place] (5/325)) 1 tab Q6H PRN PO MODERATE PAIN LEVEL 4-6; Start 11/16/16 at 18:30 Morphine Sulfate (morphine) 2 mg Q4H PRN IV SEVERE PAIN LEVEL 7-10; Start at 18:30 Docusate Sodium (Colace) 100 mg Q12H PRN PO CONSTIPATION; Start 11/16/16 at 18: 30 Magnesium Hydroxide (Milk Of Mag) 30 ml DAILY PRN PO CONSTIPATION; Start at 18:30 Sodium Biphosphate/ Sodium Phosphate (Fleet Enema) 133 ml DAILY PRN [place] CONSTIPATION; Start 11/16/16 at 18:30 Pantoprazole 40 mg 40 mg DAILY@06 PO Last administered on 11/17/16 05:30; Admin Dose 40 MG; Start 11/17/16 at 06:00 Sodium Chloride (1/2 NS) 1,000 ml @ 75 mls/hr [id number] IV Last administered on 11/16/16 18:48; Admin Dose 75 MLS/HR; Start 11/16/16 at 18:04 Lorazepam (Ativan) 0.5 mg Q6H PRN IV ANXIETY; Start 11/16/16 at 18:30 Clonidine 0.1 mg 0.1 mg Q6H PRN PO ELEVATED BLOOD PRESSURE; Start 11/16/16 at 18 :30 Ceftriaxone Sodium (Rocephin) 50 ml @ 100 mls/hr Q24H IVPB Last administered on 11/16/16 18:48; Admin Dose 100 MLS/HR; Start 11/16/16 at 18:30 Nitroglycerin (Nitroglycerin (Sl Tab) 0.4 Mg) 1 tab Q5M PRN SL ANGINA; Start at 18:30 Clonazepam (Klonopin) 0.5 mg QHS PO Last administered on 11/16/16 21:27; Admin Dose 0.5 MG; Start 11/16/16 at 21:00 Diphenhydramine HCl (Benadryl) 25 mg QHS PRN PO ITCHING; Start 11/16/16 at 18:30 Finasteride (Proscar) 5 mg DAILY PO Last administered on 11/17/16 10:00; Admin Dose 5 MG; Start 11/17/16 at 09:00 Furosemide (Lasix) 20 mg DAILY PO Last administered on 11/17/16 10:01; Admin Dose 20 MG; Start 11/17/16 at 09:00 Lubiprostone (Amitiza) 24 mcg BID PO Last administered on 11/17/16 10:00; Admin Dose 24 MCG; Start 11/16/16 at 21:00 Meclizine HCl (Antivert) 25 mg Q8H PRN PO DIZZINESS; Start 11/16/16 at 18:30 Tamsulosin HCl (Flomax) 0.4 mg BID PO Last administered on 11/17/16 10:00; Admin Dose 0.4 MG; Start 11/16/16 at 21:00 Triamcinolone Acetonide (Kenalog 0.1% Cr) 1 applic BID TOP Last administered on 11/17/16 10:00; Admin Dose 1 APPLIC; Start 11/16/16 at 21:00 Memantine (Namenda) 10 mg BID PO ; Start 11/17/16 at 21:00 Losartan Potassium (Cozaar) 100 mg DAILY PO ; Start 11/17/16 at 13:00 Donepezil HCl (Aricept) 10 mg DAILY PO ; Start 11/17/16 at 13:00 Hydrochlorothiazide (Hydrochlorothiazide) 12.5 mg DAILY PO ; Start 11/17/16 at 13 :00 Procedures Procedures ECG done yesterday demonstrates atrial flutter at 86 bpm, left anterior fascicular block, left ventricular hypertrophy with QRS 120 ms, nonspecific STT wave abnormalities Sudheer Mcgregor DO Nov 17, 2016 12:32
--- NOTE | 2016-11-17 12:33 | DS ---
Date/Time of Note Date/Time of Note DATE: 11/17/16 TIME: 12:29 Discharge Summary Admission/Discharge Info Admit Date/Time Nov 16, 2016 at 16:32 Discharge Date/Time Discharge Diagnosis 1. Weakness dizziness - improved - could be related to patient's blood pressure issues. 2. Hypertensive urgency: Patient's systolic blood pressure in the low 200 range on admission, but improved now 3. HTN 4. Prostate issues: Continue current prostate meds 5. History of aortic valve replacement 6. Elevated INR: Hold Coumadin, trend INR 7. Hx of CABG Patient Condition: Stable Hospital Course 76-year-old male past medical history of CAD status post CABG, aortic valve replacement, hypertension, prostate issues, who presented with complaints of weakness and dizziness. Family also stated his blood pressure at home was 235/ 110, denied any chest pain or loss of consciousness no shortness of breath no upper or lower GI bleeding no fevers or chills no diarrhea or constipation. Mild headache, but no focal deficits. When he came in on admission his INR was found to be elevated at 4.35. Patient's Coumadin was held, his INR was trended as well. He had no bleeding issues while in the hospital. He had 2D echocardiogram performed by cardiology team and read by hosiery pairer. His blood pressure improved as well it was down to normal levels, it was thought patient may not have been compliant with his medicines at home as the reason for his elevated blood pressure on admission. He was able to ambulate, tolerate a p.o. diet, and after getting clearance from cardiology team he will be discharged home today in improved condition it is recommended that he gets an INR check in 2 days at the Coumadin clinic, and in the meantime instructed not to take Coumadin medicine until he gets that INR test performed. Home Meds Active Scripts Ciprofloxacin Hcl* (Ciprofloxacin Hcl*) 250 Mg Tablet, 250 MG PO BID for 2 Days , #4 TAB Prov:WANDA MORILLO 11/17/16 Meclizine Hcl* (Meclizine Hcl*) 25 Mg Tablet, 25 MG PO Q8H Y for DIZZINESS, #30 TAB Prov:MEGHAN DELEON 02/27/16 Reported Medications Diphenhydramine Hcl* (Diphenhydramine Hcl*) 25 Mg Capsule, 25 MG PO QHS Y for ITCHING, CAP 02/26/16 Triamcinolone Acetonide* (Kenalog*) 0.1%-15GM Cr, 1 APPLIC TOP BID, #1 TUB 02/26/16 Lubiprostone* (Amitiza*) 24 Mcg Capsule, 24 MCG PO BID, #60 CAP 02/26/16 Clonazepam* (Clonazepam*) 0.5 Mg Tablet, 0.5 MG PO QHS, TAB 02/26/16 Memantine HCl/Donepezil HCl (Namzaric 28 mg-10 mg Capsule) 1 Each Cap.spr.24, 1 EACH PO DAILY 02/26/16 Olmesartan-Hydrochlorothiazide (Benicar HCT) 20-12.5 Mg Tablet, 1 TAB PO DAILY, #30 TAB 02/26/16 Finasteride* (Finasteride*) 5 Mg Tablet, 5 MG PO DAILY, TAB 02/26/16 Tamsulosin Hcl* (Tamsulosin Hcl*) 0.4 Mg Cap.er.24h, 0.4 MG PO BID, CAP 02/26/16 Furosemide (Lasix) 20 Mg Tab, 20 MG PO DAILY 02/21/11 Discontinued Reported Medications Warfarin Sodium* (Coumadin*) 3 Mg Tablet, 3 MG PO DAILY, TAB 02/26/16 Primary Care Provider Not On Staff Doctor Pending Labs Laboratory Tests Test 11/16/16 15:20 11/16/16 16:00 11/16/16 16:03 11/17/16 06:00 White Blood Count 7.210^3/ul (4.8-10.8) 9.110^3/ul (4.8-10.8) Red Blood Count 4.3710^6/ul (4.70-6.10) 3.9910^6/ul (4.70-6.10) Hemoglobin 13.3g/dl (14.0-18.0) 11.8g/dl (14.0-18.0) Hematocrit 38.9% (42.0-52.0) 35.7% (42.0-52.0) Mean Corpuscular Volume 89.0fl (82.0-101.0) 89.5fl (82.0-101.0) Mean Corpuscular Hemoglobin 30.4pg (29.0-33.0) 29.6pg (29.0-33.0) Mean Corpuscular Hemoglobin Concent 34.2g/dl (32.0-37.0) 33.1g/dl (32.0-37.0) Red Cell Distribution Width 13.7% (11.5-14.5) 13.8% (11.5-14.5) Platelet Count 86654^3/UL (140-415) 61961^3/UL (140-415) Mean Platelet Volume 12.2fl (7.4-10.4) 11.9fl (7.4-10.4) Neutrophils % 85.0% (39.0-77.0) 77.9% (39.0-77.0) Lymphocytes % 10.5% (15.0-51.0) 13.5% (15.0-51.0) Monocytes % 3.5% (0.0-11.0) 7.2% (0.0-11.0) Eosinophils % 0.3% (0.0-7.0) 1.0% (0.0-7.0) Basophils % 0.1% (0.0-2.0) 0.1% (0.0-2.0) Nucleated Red Blood Cells % 0.0/100WBC (0.0-0.0) 0.0/100WBC (0.0-0.0) Neutrophils # 6.210^3/ul (1.6-7.5) 7.110^3/ul (1.6-7.5) Lymphocytes # 0.810^3/ul (0.8-2.9) 1.210^3/ul (0.8-2.9) Monocytes # 0.310^3/ul (0.3-0.9) 0.710^3/ul (0.3-0.9) Eosinophils # 0.010^3/ul (0.0-0.5) 0.110^3/ul (0.0-0.5) Basophils # 0.010^3/ul (0.0-0.1) 0.010^3/ul (0.0-0.1) Nucleated Red Blood Cells # 0.010^3/ul (0.0-0.0) 0.010^3/ul (0.0-0.0) Prothrombin Time 42.0Sec (12.2-14.2) 40.3Sec (12.2-14.2) Prothrombin Time Ratio 3.3 3.1 INR International Normalized Ratio 4.30 4.08 Activated Partial Thromboplast Time 46.4Sec (25.0-35.0) Sodium Level 141mmol/L (135-144) 139mmol/L (135-144) Potassium Level 4.4mmol/L (3.5-5.1) 3.7mmol/L (3.5-5.1) Chloride Level 97mmol/L (97-110) 97mmol/L (97-110) Carbon Dioxide Level 27mmol/L (21-31) 27mmol/L (21-31) Anion Gap 21 (8-16) 19 (8-16) Blood Urea Nitrogen 15mg/dl (7-20) 20mg/dl (7-20) Creatinine 0.71mg/dl (0.61-1.24) 1.01mg/dl (0.61-1.24) Glucose Level 120mg/dl (70-220) 107mg/dl (70-220) Calcium Level 10.5mg/dl (8.4-10.2) 9.6mg/dl (8.4-10.2) Total Bilirubin 1.1mg/dl (0.2-1.3) Direct Bilirubin 0.00mg/dl (0.00-0.20) Indirect Bilirubin 1.1mg/dl (0-1.1) Aspartate Amino Transf (AST/SGOT) 34IU/L (15-46) Alanine Aminotransferase (ALT/SGPT) 44IU/L (13-69) Alkaline Phosphatase 107IU/L (42-121) Troponin I < 0.012ng/ml (0.00-0.12) Total Protein 7.8g/dl (6.1-8.1) Albumin 5.0g/dl (3.3-4.9) Globulin 2.80g/dl (1.3-3.2) Albumin/Globulin Ratio 1.78 Free Thyroxine 1.06ng/dl (0.78-2.44) Ethyl Alcohol Level < 10.0mg/dl Bedside Glucose 123mg/dL (70-220) Urine Color YELLOW (YELLOW) Urine Clarity SLIGHTLY CLOUDY (CLEAR) Urine pH 7.0 (5.0-9.0) Urine Specific [place] 1.014 (1.003-1.030) Urine Ketones NEGATIVEmg/dL (NEGATIVE) Urine Nitrite NEGATIVEmg/dL (NEGATIVE) Urine Bilirubin NEGATIVEmg/dL (NEGATIVE) Urine Urobilinogen NEGATIVEmg/dL (NEGATIVE) Urine Leukocyte Esterase TRACELeu/ul (NEGATIVE) Urine Microscopic RBC 3/HPF (0-5) Urine Microscopic WBC 6/HPF (0-5) Urine Amorphous Crystals FEW/HPF (NONE SEEN) Urine Hemoglobin NEGATIVEmg/dL (NEGATIVE) Urine Glucose NEGATIVEmg/dL (NEGATIVE) Urine Total Protein 1+mg/dl (NEGATIVE) Phosphorus Level 3.7mg/dl (2.5-4.9) Magnesium Level 1.9mg/dl (1.7-2.5) Triglycerides Level 96mg/dl (0-149) Cholesterol Level 162mg/dl (100-200) LDL Cholesterol, Calculated 92mg/dl HDL Cholesterol 51mg/dl (31-75) Cholesterol/HDL Ratio 3.1RATIO Thyroid Stimulating Hormone (TSH) 0.924MIU/L (0.465-4.680) WANDA MORILLO Nov 17, 2016 12:33
[2016-11-17] MEDS ORDERED: LOSARTAN 50 MG TAB PO SCH (13:00)
[2016-11-17] MEDS ORDERED: HYDROCHLOROTHIAZIDE 12.5 MG CAP PO SCH (13:00)
[2016-11-17] MEDS ORDERED: DONEPEZIL 10 MG TAB PO SCH (13:00)
[2016-11-17] MEDS ORDERED: LORAZEPAM 0.5 MG TAB PO PRN (15:00)
[2016-11-17] MEDS ORDERED: MEMANTINE 10 MG TAB PO SCH (21:00)
== END 2016-11-17 15:30 | disposition home or self-care (01) ==
LOC: E/R 14:10 → TEL 16:32 → INTOOBSV 16:32
PROVIDERS: ADMIT Hospitalist; ATTEND Hospitalist
DX: R42 Dizziness and giddiness (principal); I10 Essential (primary) hypertension; I48.91 Unspecified atrial fibrillation; I05.0 Rheumatic mitral stenosis; R53.1 Weakness
CPT/HCPCS: 36415; 70450; 71010; 80048; 80053; 80061; 80306; 81001; 82962; 83036; 83735; 84100; 84439; 84443; 84484; 85025; 85610; 85730; 93005; 93306; 96374; 96375; 97162; 99285; G0378; J0360; J0696; J2405; J2765; J7030

== ENCOUNTER 2017-03-20 21:32 | Inpatient (IN) | END 2017-03-24 14:37 | disposition home or self-care (01) | DRG 305 | DX: I16.0 Hypertensive urgency (principal); I48.2 Chronic atrial fibrillation; G30.9 Alzheimer's disease, unspecified; F02.80 Dementia in other diseases classified elsewhere, unspecified severity, without behavioral disturbance, psychotic disturbance, mood disturbance, and anxiety; I25.10 Atherosclerotic heart disease of native coronary artery without angina pectoris; R07.9 Chest pain, unspecified; K59.00 Constipation, unspecified; N40.1 Benign prostatic hyperplasia with lower urinary tract symptoms; R42 Dizziness and giddiness; E78.5 Hyperlipidemia, unspecified; I10 Essential (primary) hypertension; Z79.01 Long term (current) use of anticoagulants; Z91.14 Patient's other noncompliance with medication regimen; Z91.81 History of falling; Z95.2 Presence of prosthetic heart valve; Z95.1 Presence of aortocoronary bypass graft ==

== ENCOUNTER 2017-04-09 20:09 | Emergency (ER) | payer MEDICARE, OTHER ==
[~2017-04-09] VITALS: Ht 167.6 cm; Wt 77.0 kg
[~2017-04-09 20:09] MED LIST changes: +DOCU-216 PO; +SENN-53 PO
[2017-04-09 20:13] VITALS: Ht 167.6 cm; Wt 77.0 kg
[2017-04-09] MEDS ORDERED: LABETALOL HCL 20MG INJ IV ONE (21:00)
[2017-04-09 21:15] LABS: URINE BLOOD (Dip) POC Trace-intact (NEGATIVE)
[2017-04-09 21:22] LABS: ABNORMAL IP MESSAGE 1; BASOPHILS % 0.3 % (0.0-2.0); EOSINOPHILS % 0.4 % (0.0-7.0); HEMATOCRIT 38.5 % (42.0-52.0); HEMOGLOBIN 13.3 g/dl (14.0-18.0); LYMPHOCYTES # 0.6 10^3/ul (0.8-2.9); LYMPHOCYTES % 8.6 % (15.0-51.0); MEAN CORPUSCULAR HEMOGLOBIN 30.3 pg (29.0-33.0); MEAN CORPUSCULAR HGB CONC 34.5 g/dl (32.0-37.0); MEAN CORPUSCULAR VOLUME 87.7 fl (82.0-101.0); MEAN PLATELET VOLUME 12.1 fl (7.4-10.4); MONOCYTE # 0.3 10^3/ul (0.3-0.9); MONOCYTES % 4.2 % (0.0-11.0); NEUTROPHIL # 5.9 10^3/ul (1.6-7.5); NEUTROPHILS % 86.1 % (39.0-77.0); PLATELET COUNT 200 10^3/UL (140-415); POSITIVE DIFF @See below; RED BLOOD COUNT 4.39 10^6/ul (4.70-6.10); RED CELL DISTRIBUTION WIDTH 12.8 % (11.5-14.5); WHITE BLOOD COUNT 6.8 10^3/ul (4.8-10.8)
--- NOTE | 2017-04-09 21:22 | RADRPT ---
PROCEDURE: XR Chest. CLINICAL INDICATION: Chest pain TECHNIQUE: Single AP portable chest. COMPARISON: 09/26/2013 Chest x-ray FINDINGS: Mild cardiomegaly. Sternotomy wires in place. Atherosclerotic calcification of the aorta. The lungs are clear without pleural effusion or focal consolidation. No pneumothorax. The osseous structures and soft tissues are unremarkable. IMPRESSION: 1. Mild cardiomegaly. No acute intrathoracic abnormality . RPTAT:AAJJ Physician Tobin Date Time Electronically viewed and signed by Physician Tobin on 04/09/2017 21:22 LEXII/
[2017-04-09] MEDS ORDERED: SOD CHLORIDE 0.9% 1,000 ML IV ONE (21:30)
[2017-04-09 21:41] LABS: CALCIUM 9.5 mg/dl (8.4-10.2); CREATININE 0.72 mg/dl (0.61-1.24); POTASSIUM 4.2 mmol/L (3.5-5.1)
[2017-04-09 21:52] LABS: ADD UMIC YES; UR ASCORBIC ACID NEGATIVE (NEGATIVE); UR BILIRUBIN (Dip) NEGATIVE (NEGATIVE); UR BLOOD (Dip) NEGATIVE (NEGATIVE); UR CLARITY CLEAR (CLEAR); UR COLOR YELLOW (YELLOW); UR GLUCOSE (Dip) NEGATIVE (NEGATIVE); UR KETONES (Dip) TRACE mg/dL (NEGATIVE); UR LEUKOCYTE ESTERASE (Dip) 2+ Leu/ul (NEGATIVE); UR NITRITE (Dip) NEGATIVE (NEGATIVE); UR RBC 2 /HPF (0-5); UR SPECIFIC GRAVITY (Dip) 1.011 (1.003-1.030); UR TOTAL PROTEIN (Dip) NEGATIVE (NEGATIVE); UR UROBILINOGEN (Dip) NEGATIVE (NEGATIVE)
[2017-04-09 21:54] LABS: TROPONIN-I 0.013 ng/ml (0.00-0.12)
[2017-04-10] MEDS ORDERED: LABETALOL HCL 20MG INJ IV ONE
[2017-04-10] MEDS ORDERED: NITR-58 PO (00:36)
[2017-04-10] MEDS ORDERED: AMLO-147 PO (00:36)
[2017-04-10] MEDS ORDERED: CEPH-443 PO (00:36)
--- NOTE | 2017-04-10 00:46 | ERD ---
ER Documentation Chief Complaint Chief Complaint HTn w/ weakness, hx of same. 200/100 upon EMS arrival, no pain. HPI 77-year-old male was sent in for his weakness with no focal weakness. Also had high blood pressure on EMS arrival at 200/100. Patient himself denies pain or symptoms. No chest pain, shortness of breath. He states he feels well. He has a blood pressure regimen and established hypertension already. ROS All systems reviewed and are negative except as per history of present illness. Medications Home Meds Active Scripts Nitrofurantoin Monohyd Macrocr* (Macrobid*) 100 Mg Capsr, 100 MG PO BID, #7 CAP Prov:TIP JONES DO 04/10/17 Cephalexin* (Keflex*) 500 Mg Capsule, 500 MG PO Q6, #28 CAP Prov:ASHLEY JONESSHUA DO 04/10/17 Amlodipine Besylate* (Amlodipine Besylate*) 10 Mg Tablet, 5 MG PO DAILY, #30 TAB Prov:ASHLEY JONESSHUA DO 04/10/17 Sennosides* (Senna Lax*) 8.6 Mg Tablet, 2 TAB PO BID, #60 TAB Prov:DEE SPRING V. PAPER REEL OPERATOR 03/24/17 Docusate Sodium (Dok) 100 Mg Capsule, 100 MG PO Q12H, #60 CAP Prov:DEE SPRING V. PAPER REEL OPERATOR 03/24/17 Meclizine Hcl* (Meclizine Hcl*) 25 Mg Tablet, 25 MG PO Q8H Y for DIZZINESS, #30 TAB Prov:MEGHAN DELEON 02/27/16 Reported Medications Warfarin Sodium* (Coumadin*) 3 Mg Tablet, 3 MG PO DAILY, TAB 03/24/17 Diphenhydramine Hcl* (Diphenhydramine Hcl*) 25 Mg Capsule, 25 MG PO QHS Y for ITCHING, CAP 02/26/16 Triamcinolone Acetonide* (Kenalog*) 0.1%-15GM Cr, 1 APPLIC TOP BID, #1 TUB 02/26/16 Lubiprostone* (Amitiza*) 24 Mcg Capsule, 24 MCG PO BID, #60 CAP 02/26/16 Clonazepam* (Clonazepam*) 0.5 Mg Tablet, 0.5 MG PO QHS, TAB 02/26/16 Memantine HCl/Donepezil HCl (Namzaric 28 mg-10 mg Capsule) 1 Each Cap.spr.24, 1 EACH PO DAILY 02/26/16 Olmesartan-Hydrochlorothiazide (Benicar HCT) 20-12.5 Mg Tablet, 1 TAB PO DAILY, #30 TAB 02/26/16 Finasteride* (Finasteride*) 5 Mg Tablet, 5 MG PO DAILY, TAB 02/26/16 Tamsulosin Hcl* (Tamsulosin Hcl*) 0.4 Mg Cap.er.24h, 0.4 MG PO BID, CAP 02/26/16 Furosemide (Lasix) 20 Mg Tab, 20 MG PO DAILY 02/21/11 Allergies Allergies: Coded Allergies: ciprofloxacin (Verified Allergy, Mild, DEVELOPED ITCHING WITH DRUG INFUSION, 03/24/17) PMhx/Soc History of Surgery: Yes (CABG) Anesthesia Reaction: No Hx Neurological Disorder: No Hx Respiratory Disorders: Yes (hx of pna) Hx Cardiac Disorders: Yes (A fib, dyslipidemia) Hx Psychiatric Problems: No Hx Miscellaneous Medical Probl: Yes (BPH) Hx Alcohol Use: No Hx Substance Use: No Hx Tobacco Use: No (does not smoke now, unknown history) Smoking Status: Former smoker Physical Exam Vitals Vital Signs Date Time Temp Pulse Resp B/P Pulse Ox O2 Delivery O2 Flow Rate FiO2 04/09/17 20:13 96.8 88 20 176/116 97 04/09/17 20:10 91 16 163/89 97 Room Air Physical Exam Const: [] No obvious distress Head: Atraumatic Eyes: Normal Conjunctiva ENT: Normal External Ears, Nose and Mouth. Neck: Full range of motion..~No JVD Resp: Clear to auscultation bilaterally Cardio: Regular rate and rhythm, no murmurs Abd: Soft, non tender, non distended. Normal bowel sounds Skin: No petechiae or rashes Ext: No cyanosis, or edema Neur: Awake and alert and oriented 3, no focal deficits Psych: Normal Mood and Affect Result Diagram: 04/09/17204904/09/172049 Results 24 hrs Laboratory Tests Test 04/09/17 20:50 04/09/17 21:00 04/09/17 21:14 White Blood Count 6.810^3/ul Red Blood Count 4.3910^6/ul Hemoglobin 13.3g/dl Hematocrit 38.5% Mean Corpuscular Volume 87.7fl Mean Corpuscular Hemoglobin 30.3pg Mean Corpuscular Hemoglobin Concent 34.5g/dl Red Cell Distribution Width 12.8% Platelet Count 91001^3/UL Mean Platelet Volume 12.1fl Neutrophils % 86.1% Lymphocytes % 8.6% Monocytes % 4.2% Eosinophils % 0.4% Basophils % 0.3% Nucleated Red Blood Cells % 0.0/100WBC Neutrophils # 5.910^3/ul Lymphocytes # 0.610^3/ul Monocytes # 0.310^3/ul Eosinophils # 0.010^3/ul Basophils # 0.010^3/ul Nucleated Red Blood Cells # 0.010^3/ul Sodium Level 136mmol/L Potassium Level 4.2mmol/L Chloride Level 98mmol/L Carbon Dioxide Level 27mmol/L Anion Gap 15 Blood Urea Nitrogen 16mg/dl Creatinine 0.72mg/dl Glucose Level 122mg/dl Calcium Level 9.5mg/dl Troponin I 0.013ng/ml B-Type Natriuretic Peptide 1860PG/ML Urine Color YELLOW Urine Clarity CLEAR Urine pH 5.0 Urine Specific [place] 1.011 Urine Ketones TRACEmg/dL Urine Nitrite NEGATIVEmg/dL Urine Bilirubin NEGATIVEmg/dL Urine Urobilinogen NEGATIVEmg/dL Urine Leukocyte Esterase 2+Kareen/ul Urine Microscopic RBC 2/HPF Urine Microscopic WBC 8/HPF Urine Hemoglobin NEGATIVEmg/dL Urine Glucose NEGATIVEmg/dL Urine Total Protein NEGATIVEmg/dl Bedside Urine pH (LAB) 5.5 Bedside Urine Protein (LAB) 1+ Bedside Urine Glucose (UA) Negative Bedside Urine Ketones (LAB) Negative Bedside Urine Blood Trace-intact Bedside Urine Nitrite (LAB) Negative Bedside Urine Leukocyte Esterase (L 1+ Current Medications Medications (Trade) Dose Ordered Sig/Daron Route PRN Reason Start Time Stop Time Status Last Admin Dose Admin Labetalol HCl 20 mg 20 mg ONCE ONCE IV 04/09/17 21:00 04/09/17 21:01 DC 04/09/17 20:51 Sodium Chloride (NS) 1,000 ml @ 1,000 mls/hr Q1H ONCE IV 04/09/17 21:30 04/09/17 22:29 DC 04/09/17 21:17 Labetalol HCl (Labetalol) 20 mg ONCE ONCE IV 04/10/17 00:00 04/10/17 00:08 DC 04/10/17 00:17 Amlodipine Besylate (Norvasc) 10 mg ONCE ONCE PO 04/10/17 01:00 04/10/17 01:01 Procedures/MDM Francois male with out of control hypertension as well as a urinary tract infection. He was given labetalol IV in order to lower very high blood pressure systolic over 120. This worked very well and his blood pressure was lowered when he 5% easily. Has elevated BNP consistent with prior level on last ER visit. Also given amlodipine tablets to prevent rebound hypertension. Is possibly increasing in blood pressure and likely cause the generalized weakness as well because he has urinary tract infection. This is considered complicated is an elderly male. I am going to discharge with both Keflex and Macrobid for 7 days for treatment of this infection. Urine culture was obtained as well. Discharging with amlodipine 5 mg as well as primary care doctor follow-up in the next few days a spoke with his son who is a leak gang supervisor. EKG interpretation: Atrial fibrillation rate of 82, left anterior fascicular block, no ST or T-wave changes concerning for acute ischemia. Abnormal EKG leak gang supervisor interpretation: Rate controlled A. fib without arrhythmia Chest x-ray interpretation: I see no acute process, see no widened mediastinum, pneumothorax, no pulmonary edema, no fracture Departure Diagnosis: Primary Impression: Complicated UTI (urinary tract infection) Additional Impression: Uncontrolled hypertension Condition: Stable Patient Instructions: Understanding Urinary Tract Infections (UTIs), Hypertension, Established, Out Of Control Additional Instructions: Call your primary care doctor TOMORROW for an appointment during the next 2-3 days.See the doctor sooner or return here if your condition worsens before your appointment time. TIP JONES DO Apr 10, 2017 00:46
[2017-04-10] MEDS ORDERED: AMLODIPINE 10 MG TAB PO ONE (01:00)
[2017-04-10 01:30] VITALS: BP 146/73; PULSE 81; RESP 18
== END 2017-04-10 01:46 | disposition home or self-care (01) ==
LOC: E/R 20:09
DX: N39.0 Urinary tract infection, site not specified (principal); I10 Essential (primary) hypertension; R06.02 Shortness of breath; Z98.61 Coronary angioplasty status; Z87.891 Personal history of nicotine dependence; Z79.01 Long term (current) use of anticoagulants
CPT/HCPCS: 36415; 71010; 80048; 81001; 81003; 83880; 84484; 85025; 87086; 96374; 96376; 99285; J7030; 93005

== ENCOUNTER 2017-07-30 00:23 | Inpatient (IN) | END 2017-08-07 13:30 | disposition home health service (06) | DRG 871 ==

== ENCOUNTER 2019-01-10 16:25 | Emergency (ER) | payer MEDICARE, OTHER ==
[~2019-01-10] VITALS: Ht 160 cm; Wt 70.0 kg
[~2019-01-10 16:25] MED LIST changes: +ALBU8.5H8 INH; +ATOR20TA38 PO; -BENHCT2012 PO; +BUDE6HFA INHALATION; -CLON0.5T4 PO; +CYAN1TAB55 PO; +DILT180C72 PO; -DIPH25CA6 PO; -DOCU-216 PO; +FER325 PO; +FURO40TA4 PO; -LAS20 PO; -LUBI24CA7 PO; -MECL-77 PO; +METO-448 PO; +METR500T PO; +OLME1TAB83 PO; +PRED50TA PO; +PROM5SYR2 PO; -SENN-53 PO; +TAMS-14 PO; -TRIA15CR55 TOP; +WARF2TAB PO; +WARF4TAB PO; +[UNRECOGNIZED DRUG - CODE] IV
[2019-01-10 16:58] VITALS: Ht 160 cm; Wt 70.0 kg
[2019-01-10] MEDS ORDERED: SOD CHLORIDE 0.9% 500 ML IV STA (19:20)
[2019-01-10 19:36] VITALS: BP 155/88; PULSE 94; RESP 24
== END 2019-01-10 20:03 | disposition left against medical advice (07) ==
LOC: E/R 16:25
DX: R91.8 Other nonspecific abnormal finding of lung field (principal); D59.1 Other autoimmune hemolytic anemias; R07.9 Chest pain, unspecified; I48.91 Unspecified atrial fibrillation; F17.210 Nicotine dependence, cigarettes, uncomplicated; Z79.01 Long term (current) use of anticoagulants; Z95.1 Presence of aortocoronary bypass graft
CPT/HCPCS: 36415; 71045; 80053; 83690; 84484; 85025; 85610; 85730; 86850; 86900; 86901; 93005; 99285; J7040